=== PATIENT | male | born 1945 | race African-American/Black ===

== ENCOUNTER 2020-06-07 11:13 | Emergency (ER) | payer MEDICARE, OTHER ==
[~2020-06-07] VITALS: Ht 185.4 cm; Wt 102.1 kg
[2020-06-07 11:18] VITALS: BP 126/65
--- NOTE | 2020-06-07 11:25 | NUR ---
SEEN BY DR. LUI.
--- NOTE | 2020-06-07 11:51 | NUR ---
ACCUCHECK RESULT 185MG/DL.
--- NOTE | 2020-06-07 11:54 | NUR ---
[facility] TRIP NUMBER [id number]
--- NOTE | 2020-06-07 13:27 | NUR ---
REPORT GIVEN TO COMMUNITY RECREATION COORDINATOR. PATIENT A/OX4, NO DISTRESS NOTED. NEEDS ATTENDED. Patient discharged to home in stable condition. Written and verbal after care instructions given. Patient verbalizes understanding of instruction.
== END 2020-06-07 13:33 | disposition home or self-care (01) ==
LOC: ER 11:17
DX: E11.65 Type 2 diabetes mellitus with hyperglycemia (principal); R53.1 Weakness; I10 Essential (primary) hypertension; Z86.73 Personal history of transient ischemic attack (TIA), and cerebral infarction without residual deficits; Z79.4 Long term (current) use of insulin
CPT/HCPCS: 82962-TC

== ENCOUNTER 2020-06-29 18:20 | Inpatient (IN) | payer MEDICARE, OTHER ==
[~2020-06-29] VITALS: Ht 185.4 cm; Wt 105.7 kg
--- NOTE | 2020-06-29 18:20 | NUR ---
PT BIBRA FROM SNF C/O LEAKING G TUBE AND COUGHING FOR 3 DAYS. PT IS AAOX2, NOT IN RESPIRATORY DISTRESS, HOOKED TO CHAIR INSPECTOR, KEPT RESTED AND COMFORTABLE. WILL CONTINUE TO MONITOR.
--- NOTE | 2020-06-29 18:38 | NUR ---
AT BEDSIDE FOR EVAL.
--- NOTE | 2020-06-29 18:42 | NUR ---
G TUBE FLUSHED NO LEAKED NOTED. AWARE.
--- NOTE | 2020-06-29 18:55 | NUR ---
IV LINE ESTABLISHED BLOOD DRAWN AND SENT TO LAB.
--- NOTE | 2020-06-29 18:59 | NUR ---
DIE BARBER AT BEDSIDE FOR XRAY.
[2020-06-29 19:05] LABS: BASOPHILS # (AUTO) 0.1 /CMM (0.0-0.2); EOSINOPHILS % (AUTO) 3.5 % (0.0-6.0); HEMATOCRIT 40 % (39-51); HEMOGLOBIN 13.2 g/dL (13.5-17.5); LYMPHOCYTES # (AUTO) 1.8 /CMM (0.8-4.8); LYMPHOCYTES % (AUTO) 26.5 % (20.0-44.0); MEAN CORPUSCULAR HGB CONC 33 g/dl (31.0-36.0); MEAN CORPUSCULAR VOLUME 85 fL (80-96); MONOCYTES # (AUTO) 0.6 /CMM (0.1-1.30); MONOCYTES % (AUTO) 8.9 % (2.0-12.0); NEUTROPHILS % (AUTO) 60.1 % (43.0-81.0); PLATELET COUNT (AUTO) 258 /CMM (150-450); RED BLOOD CELL COUNT(AUTO) 4.76 MIL/uL (4.5-6.0); WHITE BLOOD COUNT (AUTO) 6.7 K/uL (4.3-11.0)
[2020-06-29 19:23] LABS: CALCIUM, SERUM 9.1 mg/dL (8.5-10.1); CARBON DIOXIDE 31 mmol/L (21-32); CHLORIDE 99 mmol/L (98-107); CREATININE 1.7 mg/dL (0.6-1.3); GLUCOSE 113 mg/dL (74-106); POTASSIUM 3.6 mmol/L (3.5-5.1); SODIUM SERUM 135 mmol/L (136-145); UREA NITROGEN, BLOOD 33 mg/dL (7-18)
[2020-06-29 19:30] LABS: ALANINE AMINOTRANSFERASE 21 U/L (12-78); ALBUMIN 3.4 g/dL (3.4-5.0); ALKALINE PHOSPHATASE 102 U/L (46-116); ASPARTATE AMINOTRANSFERASE 17 U/L (15-37); BILIRUBIN,DIRECT 0.1 mg/dL (0.0-0.2); BILIRUBIN,TOTAL 0.3 mg/dL (0.2-1.0); TOTAL PROTEIN, SERUM 7.3 g/dL (6.4-8.2)
--- NOTE | 2020-06-29 19:53 | NUR ---
CALLED FOR COVID SWAB
--- NOTE | 2020-06-29 20:07 | NUR ---
MRSA AND COVID SWAB SAMPLE COLLECTED AND SENT TO THE LAB.
--- NOTE | 2020-06-29 20:31 | NUR ---
[facility]
[2020-06-29] MEDS ORDERED: MAG HYDROX/AL HYDROX/SIMETH 30 ML UDC PO PRN (21:00)
[2020-06-29] MEDS ORDERED: ACETAMINOPHEN 325 MG TABLET PO PRN (21:00)
[2020-06-29] MEDS ORDERED: ONDANSETRON HCL/PF 4 MG/2 ML VIAL IVP PRN (21:00)
[2020-06-29] MEDS ORDERED: Z GUARD REMEDY 2 OZ OINT TP PRN (21:00)
[2020-06-29] MEDS ORDERED: HYDROCODONE/APAP 5/325MG TABLET PO PRN (21:00)
[2020-06-29] MEDS ORDERED: MAGNESIUM HYDROXIDE 30 ML UDC PO PRN (21:00)
[2020-06-29] MEDS ORDERED: ZOLPIDEM TARTRATE 5 MG TABLET PO PRN (21:00)
--- NOTE | 2020-06-29 21:19 | NUR ---
REPROT GIVEN TO JANEEN HENDRICKSON FOR CHILO
[2020-06-29 21:50] VITALS: BP 140/87
--- NOTE | 2020-06-29 21:50 | NUR ---
RN MS ADMITTING NOTES RECEIVED PATIENT FROM ER VIA RNEY SAFELY TRANSFERRED TO BED ,ALERT AND ORIENTED X3, ABLE TO MAKE NEEDS, KNOWN RESPIRATIONS EVEN AND UNLABORED WITH EQUAL RISE AND FALL OF CHEST, DENIES ANY PAIN OR DISCOMFORT AT THIS TIME, GTUBE NOTED WITH SLIGHT REDNESS TO STOMA, BODY ASSESSMENT DONE SACRAL SCAR TISSUE PRESENT , UNABLE TO ASSESS FEET PATIENT REFUSED X 3 DESPITE EDUCATION. IV SITE TO LEFT HAND #20 G INTACT AND PATENT, NO REDNESS, NO INFILTRATION , BELONGINGS LIST DONE, SAFETY PRECAUTIONS RENDERED, ALL NEEDS ATTENDED REMAINS COMFORTABLE, ORIENTED TO STAFF AND CALL LIGHT AND KEPT WITHIN REACH, WILL CONTINUE TO MONITOR AND CARRY OUR MD ORDERS.
[2020-06-29] MEDS: IV NS 0.9% 1,000 ML IV PRN (22:21)
--- NOTE | 2020-06-29 23:03 | NUR ---
EMEKA MS NOTES NEW ORDER RECEIVED BY JULIAN CAT FOR KUB.
[2020-06-29] MEDS ORDERED: DIATR MEGLU/DIATRIZOATE SODIUM 30 ML BOTTLE (GASTROGRAPHIN) ONE (23:09)
--- NOTE | 2020-06-30 00:33 | NUR ---
RN MS NOTES PATIENT KUB RESULTED CONFIRMING GASTROSTOMY PLACEMENT, [facility] HOSPITALIST AWARE, WITH NEW ORDER TO START FEEDING, AND MADE AWARE OF VTE SCORE GREATER THAN 5, WITH NEW ORDER FOR LOVENOX SQ 40 MG DAILY.
[2020-06-30] MEDS ORDERED: DEXTROSE 50%-WATER 50 ML DISP.SYRIN IV PRN (01:00)
[2020-06-30] MEDS: JEVITY 1.2 CAL 1,000 ML BOTTLE GT SCH (01:30)
[2020-06-30] MEDS: BLOOD SUGAR DIAGNOSTIC 1 EACH STRIP IN SCH ×4 (05:50→23:16)
[2020-06-30] MEDS: INSULIN REGULAR, HUMAN 100 UNIT/ML 3 ML VIAL SQ PRN ×2 (05:51→23:23)
--- NOTE | 2020-06-30 06:23 | NUR ---
RN MS CLOSING NOTES PATIENT IN BED ,ALERT AND ORIENTED X3, ABLE TO MAKE NEEDS KNOWN RESPIRATIONS EVEN AND UNLABORED WITH EQUAL RISE AND FALL OF CHEST, DENIES ANY PAIN OR DISCOMFORT AT THIS TIME, HEAD OF BED ELEVATED FOR ASPIRATION PRECAUTIONS, GTUBE IS RUNNING ORDERED AND TOLERATING WELL, RESIDUALS 5 CC , NO LEAKING NOTED, NO LEAKAGE IN STOMA PRESENT, SACRAL SCAR TISSUE PRESENT , UNABLE TO ASSESS FEET PATIENT REFUSED X 3 DESPITE EDUCATION. PT ALSO REFUSED MORNING LAB DRAW DESPITE EDUCATION, IV SITE TO LEFT HAND #20 G INTACT AND PATENT, NO REDNESS, NO INFILTRATION , IVF RUNNING ORDERED, SAFETY PRECAUTIONS RENDERED, ALL NEEDS ATTENDED REMAINS COMFORTABLE, CALL LIGHTKEPT WITHIN REACH, WILL CONTINUE TO MONITOR AND ENDORSE TO NEXT SHIFT.
--- NOTE | 2020-06-30 07:30 | NUR ---
RN NOTES RECEIVED PATIENT IN BED RESTING COMFORTABLY IN MODERATE HIGH BACK REST, A/OX3, ABLE TO MAKE NEEDS KNOWN NO SIGNS OF DISTRESS NOTED AT THIS TIME, NOTED WITH G-TUBE RUNNING ORDERED AND TOLERATING WELL, NO LEAKING NOTED, IV FLUIDS ON LEFT HAND #20 WITH NS RUNNING @75ML/HR. INTACT AND PATENT, SAFETY MEASURES IN PLACE, BED IN LOWEST LOCKED POSITION WITH SIDE RAILS UP X2, CALL LIGHT WITHIN REACH, WILL CONTINUE TO MONITOR.
[2020-06-30] MEDS: ENOXAPARIN SODIUM 40 MG/0.4 ML DISP.SYRIN SQ SCH (08:27)
--- NOTE | 2020-06-30 10:07 | NUR ---
WOUND CARE CONSULT: PT PRESENTS WITH SACRAL SCARRING, PRESENT ON ADMISSION. RECOMMENDATIONS MADE FOR SKIN PROTECTION. DISCUSSED WITH NURSING STAFF. WILL SEE PRN. ROSA IN AGREEMENT WITH PLAN OF CARE.
[2020-06-30] MEDS: IV NS 0.9% 1,000 ML IV PRN (12:18)
--- NOTE | 2020-06-30 14:07 | NUR ---
This is a 74-year-old male patient brought in by ambulance from [facility] second to malfunctioning G-tube, per EMR. Patient will be seen by Case Management for D/C planning.
--- NOTE | 2020-06-30 18:44 | NUR ---
RN NOTES PATIENT IN BED RESTING COMFORTABLY IN MODERATE HIGH BACK REST, A/OX3, NO SIGNS OF DISTRESS NOTED THROUGHOUT THE SHIFT, NOTED WITH G-TUBE RUNNING ORDERED AND TOLERATING WELL, NO LEAKING NOTED, REFUSED IV RE-INSERTION, EXPLAINED RISKS AND BENEFITS FOR 3X BUT PATIENT STILL REFUSED, MD AWARE. SAFETY MEASURES IN PLACE, BED IN LOWEST LOCKED POSITION WITH SIDE RAILS UP X2, CALL LIGHT WITHIN REACH, WILL ENDORSE TO ONLINE COMMUNICATIONS SPECIALIST NURSE FOR CHILO.
--- NOTE | 2020-06-30 19:44 | NUR ---
MS/RN OPENING NOTES RECEIVED PATIENT IN BED, AWAKE, ALERT X2,ABLE TO VERBALIZE NEEDS BY VOICING HIS NEEDS TO USE DIAPER AND FOLLOW UP WITH CENTRAL SUPPLY ,PATIENT CHECKED SKIN WITH NO URINE, MANY TIMES HE CALLS FOR ASSISTANCE, GTUBE PATENT AND FLUSHED, FEEDING RATE ORDERED, NPO STATUS DUE TO DYSPHAGIA, BED LOCKED, CALL LIGHTS WITHIN REACH, WILL MONITOR. PATIENT ON ROOM AIR, RESPIRATIONS EVEN AND UNLABORED.
--- NOTE | 2020-06-30 19:47 | NUR ---
REFUSE INSERTION REPORTED BY AM RN AND AWARE, WITH ORDER FOR DC. TO SNF,TO FOLLOW UP.
[2020-06-30 20:00] VITALS: BP 147/74
--- NOTE | 2020-06-30 20:00 | NUR ---
MS/RN NOTES PATIENT REFUSED TO HAVE BLOOD DRAW EVEN AFTER INFORMING THE PROS AND CONS,PATIENT STILL REFUSE AND WITH BEHAVIOR , UNABLE TO PROVIDE EDUCATION PATIENT REFUSE TO LISTEN.
[2020-06-30 20:09] VITALS: BP 147/74
[2020-07-01] MEDS: BLOOD SUGAR DIAGNOSTIC 1 EACH STRIP IN SCH ×3 (05:13→18:00)
[2020-07-01] MEDS: JEVITY 1.2 CAL 1,000 ML BOTTLE GT SCH ×2 (05:27→22:12)
[2020-07-01] MEDS: INSULIN REGULAR, HUMAN 100 UNIT/ML 3 ML VIAL SQ PRN (05:47)
--- NOTE | 2020-07-01 06:35 | NUR ---
MS/RN NOTES PATIENT ALERT X3, AWAKE AND HAD SEVERAL HOURS OF SLEEP. ATTENDED ALL NEEDS,KEEP SKIN INTACT AND DRY, RESPIRATIONS EVEN AND UNLABORED, ASSISTED IN REPOSITION FOR COMFORT, GTUBE PATENT WITH NO RESIDUALS, NO PAIN VERBALIZED AND OBSERVED, REORIENT AND MONITORED, PATIENT PREFER TO USE DIAPER. NON COMPLIANCE WITH BLOOD DRAW, WILL ENDORSE TO AM RN FOR CHILO.BED LOCKED, CALL LIGHTS WITHIN REACH.WILL ENDORSE TO AM RN FOR CHILO,
--- NOTE | 2020-07-01 07:25 | NUR ---
ms rn received on bed, awake,alert x2,not in any form of distress, respiration even and unlabored, no distress noted.g tube intact,running at 60ml/hr tolerating w/o residual.will monitor patient's condition.
[2020-07-01 08:00] VITALS: BP 136/72
--- NOTE | 2020-07-01 08:00 | NUR ---
ms rn patient is non compliant, refusing blood draws and management.
[2020-07-01] MEDS: ENOXAPARIN SODIUM 40 MG/0.4 ML DISP.SYRIN SQ SCH (09:40)
--- NOTE | 2020-07-01 10:00 | NUR ---
ms cornetist staff came 3x for today's draw, md kayla aware.
--- NOTE | 2020-07-01 12:00 | NUR ---
ms rn patient refused bs,will monitor pt.
--- NOTE | 2020-07-01 14:00 | NUR ---
ms rn patient's daughter faxed med list, deniz can't enter due to patient already finalized d/c by dr. solomon, will enter meds as regular order.
[2020-07-01 16:00] VITALS: BP 152/64
--- NOTE | 2020-07-01 18:00 | NUR ---
ms rn patient refused bs,will monitor patient.
[2020-07-01 20:00] VITALS: BP 118/75
--- NOTE | 2020-07-01 20:05 | NUR ---
ms pharmacy messenger initial notes received report from am nurse and pt checked, he's awake and alert watching TV at this time. not in any acute distress noted. He also have G-tube feeding Jevity 1.2 at 60 ml /hr tolerated well no aspiration noted. Denies any pain or any discomfort. He also have on IVF NS at 75ml/hr but refusing to infused at this time. No signs of any distress noted. kept him on semi -fowlers position with side rails x2 up and low bed lock for safety. place call light at reach. will continue monitoring.
--- NOTE | 2020-07-02 | NUR ---
ms erica notes pt blood sugar checked done 219. insulin given 4 units mychal SQ as ordered. P no signs of hyper glycemia noted. pt still on g-tube feeding. kept him on semi fowlers position. will continue montioring.
[2020-07-02] MEDS: BLOOD SUGAR DIAGNOSTIC 1 EACH STRIP IN SCH ×4 (00:38→18:29)
[2020-07-02] MEDS: INSULIN REGULAR, HUMAN 100 UNIT/ML 3 ML VIAL SQ PRN ×3 (00:44→17:34)
--- NOTE | 2020-07-02 07:38 | NUR ---
ms emergency vehicle operator closing notes pt back to sleep after morning care done. blood sugar checked done. 192, 3 units of insulin given as ordered. pt stable throughout the night and slept well. no signs of any discomfort or any acute distress noted. kept him warm and comfortable at all times. he still refusing have IVF. kept him safe at all tiems. will endorse to am nurse.
--- NOTE | 2020-07-02 07:40 | NUR ---
ms rn received on bed, awake,alert,oriented x2,not in any form of distress noted,patient still on g tube feeding at 60ml/hr, tolerating tx well.
[2020-07-02 08:00] VITALS: BP 145/85
[2020-07-02] MEDS: ENOXAPARIN SODIUM 40 MG/0.4 ML DISP.SYRIN SQ SCH (08:17)
--- NOTE | 2020-07-02 11:00 | NUR ---
ms rn was seen by dr. neha ewing/ orders made and carried out.
--- NOTE | 2020-07-02 12:00 | NUR ---
ms rn refused blood sugar at this time,all needs attended.
[2020-07-02 16:00] VITALS: BP 138/78
--- NOTE | 2020-07-02 17:00 | NUR ---
ms rn blood sugar - 247 - 4 units given,all needs attended.
[2020-07-02] MEDS: JEVITY 1.2 CAL 1,000 ML BOTTLE GT SCH (17:35)
--- NOTE | 2020-07-02 19:30 | NUR ---
MS RN NOTES RECEIVED ON BED CALM AND QUIET,ALERT,X 2,WITH EPISODE OF CONFUSION.IVF ON STANDBY,PATIENT REFUSED.WITH JEVITY FEEDING AT 60ML/HR RATE VIA GT,VIA FEEDING PUMP TOLERATED WELL.NEGATIVE FOR RESIDUAL VOLUME.HOB ELEVATED FOR ASPIRATION PRECAUTION.CALL LIGHT IN REACH,NEEDS ANTICIPATED.
[2020-07-02 20:00] VITALS: BP 159/75
--- NOTE | 2020-07-03 | NUR ---
MS RN NOTES ACCU-CHECK BLOOD SUGAR CHECK 227,COVERED WITH HUMULIN R 4 UNITS PER SLIDING SCALE.
[2020-07-03] MEDS: BLOOD SUGAR DIAGNOSTIC 1 EACH STRIP IN SCH ×5 (00:17→23:30)
[2020-07-03] MEDS: INSULIN REGULAR, HUMAN 100 UNIT/ML 3 ML VIAL SQ PRN ×4 (00:36→23:32)
--- NOTE | 2020-07-03 06:45 | NUR ---
MS RN NOTES NO SIGNIFICANT CHANGED IN STATUS.CALM AND QUIET AT NIGHT.GT FEEDING TOLERATED WELL.NO DIARRHEA NOTED.POSSIBLE D/C TO SNF.CASE MANAGEMENT FOR PLACEMENT.ENDORSE TO DAY NURSE FOR CHILO.
--- NOTE | 2020-07-03 07:20 | NUR ---
MS RN NOTES PATIENT IN BED ALERT ORIENTED X 2. NO ACUTE DISTRESS NOTED. BREATHING UNLABORED. NO SOB NOTED. IV ACCESS PATENT AND INTACT, NO REDNESS, NO SWELLING NOTED. G TUBE FEEDING INFUSING WITH ORDERED SETTING WELL. SAFETY MEASURES IN PLACE. HEAD OF BED ELEVATED. CALL LIGHT WITHIN REACH. WILL CONTINUE TO MONITOR ACCORDINGLY.
[2020-07-03 08:50] VITALS: BP 169/97
[2020-07-03] MEDS: ENOXAPARIN SODIUM 40 MG/0.4 ML DISP.SYRIN SQ SCH (09:57)
[2020-07-03] MEDS: JEVITY 1.2 CAL 1,000 ML BOTTLE GT SCH (10:07)
[2020-07-03 16:47] VITALS: BP 143/82
--- NOTE | 2020-07-03 19:00 | NUR ---
MS RN NOTES PATIENT IN BED ALERT ORIENTED X 2. NO ACUTE DISTRESS NOTED. BREATHING UNLABORED. NO SOB NOTED. IV ACCESS PATENT AND INTACT, NO REDNESS, NO SWELLING NOTED. G TUBE FEEDING INFUSING WITH ORDERED SETTING WELL. NEEDS ATTENDED AND ANTICIPATED. KEPT CLEAN DRY AND COMFORTABLE.TURN AND REPOSITION EVERY 2 HOURS AND NEEDED. CALL LIGHT WITHIN REACH. WILL ENDORSE TO NIGHT NURSE FOR CONTINUITY OF CARE.
[2020-07-03 20:00] VITALS: BP 136/77
--- NOTE | 2020-07-03 20:30 | NUR ---
returned item clerk: received report from christiano. pt a/o x2, watching tv, periodically calling for help, on ra respirations even and unlabored. no iv access noted, pt refusing for iv insertion, will offer again. currently has gtube in placed receiving jevity 1.2 at 60ml/hr. safety precautions for fall initiated, call light in reach, will continue monitoring pt.
--- NOTE | 2020-07-04 | NUR ---
rn notes: refused iv insertion, offered multiple times,, md made aware
--- NOTE | 2020-07-04 03:47 | NUR ---
rn notes: offered bed bath and iv insertion, pt refused, stated leave me alone, pt upset. education provided to pt.
[2020-07-04] MEDS: JEVITY 1.2 CAL 1,000 ML BOTTLE GT SCH (04:58)
[2020-07-04] MEDS: IV NS 0.9% 1,000 ML IV PRN ×2 (04:58→23:16)
[2020-07-04] MEDS: BLOOD SUGAR DIAGNOSTIC 1 EACH STRIP IN SCH ×4 (05:11→23:43)
[2020-07-04] MEDS: INSULIN REGULAR, HUMAN 100 UNIT/ML 3 ML VIAL SQ PRN ×3 (05:14→23:43)
--- NOTE | 2020-07-04 06:49 | NUR ---
End of shift report: Pt remains a/o x2, remains to refused bed bath and linen change, pt continent, uses urinal. Remains to refused iv insertion, despite providing education. Gtube remains in placed, receiving with jevity 1.2 at 60 ml/hr, no s/s of leaking or malfunction noted. Vs remains stable, needs attended. Plan of care: dc planning back to facility. . Safety precautions for fall remains engaged, call light in reach, will endorse to day rn for continuity of care.
[2020-07-04 06:59] LABS: BASOPHILS # (AUTO) 0.1 /CMM (0.0-0.2); BASOPHILS % (AUTO) 1.1 % (0.0-2.0); EOSINOPHILS % (AUTO) 3.9 % (0.0-6.0); HEMATOCRIT 37 % (39-51); HEMOGLOBIN 11.8 g/dL (13.5-17.5); LYMPHOCYTES # (AUTO) 1.1 /CMM (0.8-4.8); LYMPHOCYTES % (AUTO) 21.3 % (20.0-44.0); MEAN CORPUSCULAR HGB CONC 32 g/dl (31.0-36.0); MEAN CORPUSCULAR VOLUME 86 fL (80-96); MONOCYTES # (AUTO) 0.4 /CMM (0.1-1.30); MONOCYTES % (AUTO) 8.8 % (2.0-12.0); NEUTROPHILS # (AUTO) 3.3 /CMM (1.8-8.9); NEUTROPHILS % (AUTO) 64.9 % (43.0-81.0); PLATELET COUNT (AUTO) 239 /CMM (150-450); RED BLOOD CELL COUNT(AUTO) 4.31 MIL/uL (4.5-6.0); WHITE BLOOD COUNT (AUTO) 5.1 K/uL (4.3-11.0)
--- NOTE | 2020-07-04 07:12 | NUR ---
MS RN NOTES PATIENT IN BED ALERT ORIENTED X 2. NO ACUTE DISTRESS NOTED. BREATHING UNLABORED. NO SOB NOTED. NO IV ACCESS, MD AWARE. G TUBE FEEDING INFUSING WITH ORDERED SETTING WELL. SAFETY MEASURES IN PLACE. HEAD OF BED ELEVATED. CALL LIGHT WITHIN REACH. WILL CONTINUE TO MONITOR ACCORDINGLY.
[2020-07-04 07:21] LABS: CALCIUM, SERUM 8.7 mg/dL (8.5-10.1); CARBON DIOXIDE 26 mmol/L (21-32); CHLORIDE 103 mmol/L (98-107); CREATININE 1.4 mg/dL (0.6-1.3); GLUCOSE 277 mg/dL (74-106); POTASSIUM 4.4 mmol/L (3.5-5.1); SODIUM SERUM 138 mmol/L (136-145); UREA NITROGEN, BLOOD 26 mg/dL (7-18)
[2020-07-04 08:00] VITALS: BP 136/81
[2020-07-04] MEDS: ENOXAPARIN SODIUM 40 MG/0.4 ML DISP.SYRIN SQ SCH (08:58)
[2020-07-04 16:00] VITALS: BP 132/88
--- NOTE | 2020-07-04 19:00 | NUR ---
MS RN NOTES PATIENT IN BED ALERT ORIENTED X 2. NO ACUTE DISTRESS NOTED. BREATHING UNLABORED. NO SOB NOTED. NO IV ACCESS, MD AWARE. G TUBE FEEDING INFUSING WITH ORDERED SETTING WELL. NEEDS ATTENDED AND ANTICIPATED. KEPT CLEAN DRY AND COMFORTABLE.TURN AND REPOSITION EVERY 2 HOURS AND NEEDED. CALL LIGHT WITHIN REACH. WILL ENDORSE TO NIGHT NURSE FOR CONTINUITY OF CARE.
[2020-07-04 20:00] VITALS: BP 134/85
--- NOTE | 2020-07-04 20:10 | NUR ---
patternmaker metal bench: received report from christiano. pt a/o x2, on ra respirations even and unlabored. no iv access noted, pt refusing for iv insertion again. currently has gtube in placed receiving jevity 1.2 at 60ml/hr. safety precautions for fall initiated, call light in reach, will continue monitoring pt.
--- NOTE | 2020-07-05 00:01 | NUR ---
rn notes/behavior: pt kept calling asking for ice chips and water. pt on tube feeding. performed nursing swallow screen, pt failed, notice coughing after 5cc of water. explained he cannot have anything by mouth as he's high risk for aspiration and all food/nutrition/medication goes into his gtube. pt a/o x2. pt started saying nasty words, called rn and financial administrative assistant and he stated "show me your tooties, im ready to shoot you", i want the two of you to feel/fill me". informed pt these are not acceptable, and that he has to watch his words, and respect women. r notified diversity intern negrita of behavior of pt. luci topete took over with [facility].
[2020-07-05] MEDS: JEVITY 1.2 CAL 1,000 ML BOTTLE GT SCH ×2 (03:33→23:02)
[2020-07-05] MEDS: INSULIN REGULAR, HUMAN 100 UNIT/ML 3 ML VIAL SQ PRN ×4 (05:16→23:09)
[2020-07-05] MEDS: BLOOD SUGAR DIAGNOSTIC 1 EACH STRIP IN SCH ×4 (05:17→23:07)
[2020-07-05 06:51] LABS: CALCIUM, SERUM 9.1 mg/dL (8.5-10.1); CARBON DIOXIDE 30 mmol/L (21-32); CHLORIDE 103 mmol/L (98-107); CREATININE 1.4 mg/dL (0.6-1.3); GLUCOSE 280 mg/dL (74-106); POTASSIUM 4.2 mmol/L (3.5-5.1); SODIUM SERUM 141 mmol/L (136-145); UREA NITROGEN, BLOOD 31 mg/dL (7-18)
--- NOTE | 2020-07-05 06:52 | NUR ---
End of shift report: Pt remains refusing for iv insertion. On gtube feeding, tolerated well. Awaiting placement. Pt agree to have bed bath and complete linen change, had one large bm. Accu check as ordered, insulin administered per sliding scale. Vs remains stable, needs attended. Safety precautions for fall remains engaged, call light in reach. Will endorse to day rn for layton.
[2020-07-05 06:59] LABS: BASOPHILS # (AUTO) 0.1 /CMM (0.0-0.2); BASOPHILS % (AUTO) 1.4 % (0.0-2.0); EOSINOPHILS % (AUTO) 3.3 % (0.0-6.0); HEMATOCRIT 40 % (39-51); HEMOGLOBIN 12.8 g/dL (13.5-17.5); LYMPHOCYTES # (AUTO) 1.1 /CMM (0.8-4.8); LYMPHOCYTES % (AUTO) 19.4 % (20.0-44.0); MEAN CORPUSCULAR HGB CONC 32 g/dl (31.0-36.0); MEAN CORPUSCULAR VOLUME 86 fL (80-96); MONOCYTES # (AUTO) 0.5 /CMM (0.1-1.30); MONOCYTES % (AUTO) 8.4 % (2.0-12.0); NEUTROPHILS # (AUTO) 3.7 /CMM (1.8-8.9); NEUTROPHILS % (AUTO) 67.5 % (43.0-81.0); PLATELET COUNT (AUTO) 248 /CMM (150-450); RED BLOOD CELL COUNT(AUTO) 4.68 MIL/uL (4.5-6.0); WHITE BLOOD COUNT (AUTO) 5.5 K/uL (4.3-11.0)
--- NOTE | 2020-07-05 07:53 | NUR ---
EMEKA ORONA NOTES PATIENT IS AWAKE A/OX 2 WITH NO SIGNS OF DISTRESS IN ROOM AIR. REFUSED IV AWARE ENDORSED BY NIGHT NURSE RUANO . SAFETY MEASURES ARE APPLIED, BED IS LOW AND LOCKED POSITION. SIDE RAILS UP X 2 FOR SAFETY. CALL LIGHT WITHIN REACH. WILL CONTINUE TO MONITOR. Addendum: 07/05/20 at 0757 by VALERIANO PULIDO RN EMEKA HARLEY PATIENT IS AWAKE A/OX 2 WITH NO SIGNS OF DISTRESS IN ROOM AIR. REFUSED IV AWARE ENDORSED BY NIGHT NURSE ALDEN . G-TUBE INTACT FEEDING JEVITY 1.2 AT 60 ML/HR. SAFETY MEASURES ARE APPLIED, BED IS LOW AND LOCKED POSITION. SIDE RAILS UP X 2 FOR SAFETY. CALL LIGHT WITHIN REACH. WILL CONTINUE TO MONITOR.
[2020-07-05 08:00] VITALS: BP 144/93
[2020-07-05] MEDS: ENOXAPARIN SODIUM 40 MG/0.4 ML DISP.SYRIN SQ SCH (09:16)
[2020-07-05 16:00] VITALS: BP 148/82
--- NOTE | 2020-07-05 19:14 | NUR ---
RN CLOSED NOTES PATIENT IS A/O X 2. NO SIGNS OF DISTRESS IN ROOM AIR. NO SIGNS OF PAIN AT THIS MOMENT. NO IV PATIENT REFUSED MD AWARE ENDORSED BY TOP PRECIPITATOR OPERATOR NURSE. G-TUBE INTACT FEEDING JEVITY 1.2 AT 60 ML/HR. PATIENT KEPT CLEAN AND DRY. ALL NEEDS, CARE, TREATMENT AND MEDICATIONS ADMINISTERED ANTICIPATED PER ORDER. SAFETY MEASURES ARE APPLIED, BED IS LOW AND LOCKED POSITION. SIDE RAILS UP X 2 FOR SAFETY. CALL LIGHT WITHIN REACH. WILL ENDORSE TO THE NEXT TOP PRECIPITATOR OPERATOR.
--- NOTE | 2020-07-05 19:30 | NUR ---
learning coordinator: received report from sarah granados. pt a/o x2, on ra respirations even and unlabored. no iv access noted, offered iv reinsertion but still pt refused. currently has gtube in placed receiving jevity 1.2 at 60ml/hr. safety precautions for fall initiated, call light in reach, will continue monitoring pt.
[2020-07-05 20:00] VITALS: BP 142/82
--- NOTE | 2020-07-05 20:13 | NUR ---
RN NOTES: PER BIOPROCESSING MANUFACTURING TECHNICIAN PT FOR DC TO [facility] BOARD AND CARE TOMORROW AM AND SHOULD BE IN THE FACUILITY BEFORE 0800AM. HH WILL BE THERE BY 0800AM, AND PER [facility] DIRECTOR OF AUDIOLOGY SHE WANTS PT TO BE THERE AT 0800AM, FAMILY AWARE, CM AWARE. WHEN PULLING UP PT'S ACCOUNT PER CM NOTES, THERE IS NOT RIP NUMBER OR DIRECTOR OF EVENT MARKETING BOOK FOR THE PT. PER BIOPROCESSING MANUFACTURING TECHNICIAN REPORT, PT TO BE DIRECTOR OF EVENT MARKETING BY [facility]. CONTACTED [facility] [phone], SPOKED WITH NOEMI, VERIFIED THAT THERE IS NOT APPOINTMENT DIRECTOR OF EVENT MARKETING BOOK YET FOR THE PT. ALL INFORMATION GIVEN TO DISPATCH TEAM, EARLIEST DIRECTOR OF EVENT MARKETING IS 0700AM, PER NOEMI HE COULDN'T GIVE ME TRIP NUMBER YET THEY WILL NEED TO INPUT EVERYTHING IN THE COMPUTER YET, BUT THE PARAMEDICS WILL GIVE ME COPY OF TRIP NUMBER ONCE THEY GET HERE. PER PARAMEDICS, HE WILL PUT THE DIRECTOR OF EVENT MARKETING FOR 0645AM SO AMBULANCE CAN BE HERE AT EXACTLY 0700AM. NOEMI MADE AWARE TIME SHOULD BE EXACT IT IS BECAUSE PT NEEDS TO BE IN BOARD AND CARE BEFORE 0800AM. BIOPROCESSING MANUFACTURING TECHNICIAN EDOUARD MADE AWARE.
[2020-07-05 20:25] VITALS: BP 142/82
[2020-07-06] MEDS: BLOOD SUGAR DIAGNOSTIC 1 EACH STRIP IN SCH (05:11)
[2020-07-06] MEDS: INSULIN REGULAR, HUMAN 100 UNIT/ML 3 ML VIAL SQ PRN (05:12)
--- NOTE | 2020-07-06 05:43 | NUR ---
rn notes: [phone]- [facility], contacted at this time for giving report, however no ones answering the call. will try to call again in half an hour.
--- NOTE | 2020-07-06 06:43 | NUR ---
rn notes: contacted [phone], report given to imaging administrator naina. informed that dc paper works will be provided and p/u time willbe 0700 to 0730. [facility] will be there to connect pt to gtube kangaroo pump per upper caser notes.
--- NOTE | 2020-07-06 07:19 | NUR ---
end of shift report: Pt for dc to [facility]. All dc paperworks completed, as pt refused to sign, 2rn cosigned and witnessed. Inventory of belongings completed. Report given to naina/admin at [facility] and [facility]. Per instructions, for pt needs to be in [facility] b&c before 0800am. awaiting for ambulance warp picker, they will be here between 0700am to 0730am. endorsed to roberta smith for layton.
[2020-07-06 07:45] VITALS: BP 147/75
--- NOTE | 2020-07-06 07:54 | NUR ---
RN OPEN NOTES PATIENT IS AWAKE A/OX 2 WITH NO SIGNS OF DISTRESS IN ROOM AIR. G-TUBE INTACT FEEDING JEVITY 1.2 AT 60 ML/HR. ENDORSED FROM GAS PROVER NURSE PATIENT IS BEING PICKED UP AT 7:30 AM BY AMBULANCE. REPORT ALREADY GIVING TO SNF AND DISCHARGE PAPERWORK, BELONGING LIST COMPLETED BY GAS PROVER NURSE. SAFETY MEASURES ARE APPLIED, BED IS LOW AND LOCKED POSITION. SIDE RAILS UP X 2 FOR SAFETY. CALL LIGHT WITHIN REACH. WILL CONTINUE TO MONITOR.
--- NOTE | 2020-07-06 07:58 | NUR ---
AMBULANCE PIKED UP PATIENT VIA GURNEY. NO SIGNS OF DISTRESS IN ROOM AIR.
== END 2020-07-06 07:40 | disposition home or self-care (01) | DRG 393 ==
LOC: ER 18:28 → MED 21:26
PROVIDERS: ADMIT Nurse Practitioner Acute Care; ATTEND Family Medicine
DX: K94.23 Gastrostomy malfunction (principal); N17.0 Acute kidney failure with tubular necrosis; I69.351 Hemiplegia and hemiparesis following cerebral infarction affecting right dominant side; Y83.3 Surgical operation with formation of external stoma as the cause of abnormal reaction of the patient, or of later complication, without mention of misadventure at the time of the procedure; Y92.9 Unspecified place or not applicable; R13.10 Dysphagia, unspecified; Y92.049 Unspecified place in boarding-house as the place of occurrence of the external cause; E11.22 Type 2 diabetes mellitus with diabetic chronic kidney disease; I12.9 Hypertensive chronic kidney disease with stage 1 through stage 4 chronic kidney disease, or unspecified chronic kidney disease; N18.30 Chronic kidney disease, stage 3 unspecified; F41.9 Anxiety disorder, unspecified; D63.8 Anemia in other chronic diseases classified elsewhere; E11.65 Type 2 diabetes mellitus with hyperglycemia
CPT/HCPCS: 36415; 71045-TC; 74018; 80048-TC; 80076-TC; 82962-TC; 83605-TC; 84484-TC; 85025-TC; 85730-TC; 87040-TC; 87081-TC; 92526; 92611-TC; 97530-TC; C9803-CS; G0378; J1650; J1815; J7030; Q9963